=== PATIENT | male | born 1955 ===

== ENCOUNTER 2018-06-29 12:44 | Emergency (ER) | payer SELFPAY ==
[2018-06-29 12:50] VITALS: BP 145/87; PULSE 80; TEMP 37.1; O2SAT 99
--- NOTE | 2018-06-29 13:49 | ED.FALL ---
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 He states this had been quite sore, took ibuprofen for it and was getting along, but does not think it was helping the pain very much. He states that last night he was drinking and thinks that he slept on it awkwardly because it has been more painful since he woke up this morning. He denies any wheeze, cough, or fever. He states that it is hard to breathe at times due to the pain, but not frankly short of breath. He denies any other injury. He states his tetanus vaccine is up-to-date in the last 5 years as he has had frequent skin lacerations. He denies any other injury. He denies any new swelling or pain in his legs or other complaints on systems review Related Data Previous Rx's Medication Instructions Recorded hydrocodone-acetaminophen [[place]] 2 tab PO Q6H #14 tab 06/29/18 lidocaine [Lidoderm] 1 patch TOP DAILY #15 each 06/29/18 meloxicam [Mobic] 7.5 mg PO DAILY #14 tab 06/29/18 Allergies Allergy/AdvReac Type Severity Reaction Status Date / Time No Known Drug Allergies Allergy Verified 06/29/18 12:55 Review of Systems <Melissa Lara PA-C - Last Filed: 06/29/18 19:22> Review of Systems All systems reviewed & are unremarkable except as noted in HPI and below Exam <Melissa Lara PA-C - Last Filed: 06/29/18 19:22> Narrative Exam Narrative: GENERAL APPEARANCE: Patient sitting comfortably, in no distress. NECK/THYROID: Neck supple LUNGS: Breath sounds are a little coarse in the right lower lobe without shane wheeze or crackles, otherwise clear to auscultation bilaterally, no cough on exam CHEST: Tender to palpation over the right anterior lateral 10th and 11th ribs from midclavicular line lateral HEART: Regular rate and rhythm without murmur, normal S1, S2, no S3 or S4. ABDOMEN: Soft, NT, ND, + BS x 4 quadrants EXTREMITIES: No cyanosis or edema. No calf tenderness NEUROLOGIC: Alert and oriented, normal speech, gait and coordination. DERMATOLOGIC: There are 2 small scabbed abrasions on the right inferior anterior ribs Initial Vital Signs Initial Vital Signs: Vital Signs Temperature 98.8 F 06/29/18 12:50 Pulse Rate 80 06/29/18 12:50 Blood Pressure 145/87 H 06/29/18 12:50 Pulse Oximetry 99 06/29/18 12:50 <Jazz Payne MD - Last Filed: 06/30/18 08:03> Initial Vital Signs Initial Vital Signs: Vital Signs Temperature 98.8 F 06/29/18 12:50 Pulse Rate 80 06/29/18 12:50 Blood Pressure 145/87 H 06/29/18 12:50 Pulse Oximetry 99 06/29/18 12:50 PFSH <Melissa Lara PA-C - Last Filed: 06/29/18 19:22> Comment: mod ETOH Course <Melissa Lara PA-C - Last Filed: 06/29/18 19:22> Orders Ordered: Discontinued Medications Hydrocodone Bitart/Acetaminophen ([place] 5/325) 1 tab PO NOW ONE Stop: 06/29/18 14:02 Last Admin: 06/29/18 14:11 Dose: 1 tab Ibuprofen (Advil) 400 mg PO NOW ONE Stop: 06/29/18 14:02 Last Admin: 06/29/18 14:12 Dose: 400 mg Lidocaine (Lidoderm) 2 each TOP NOW ONE Stop: 06/29/18 14:02 Last Admin: 06/29/18 14:42 Dose: 2 each Vital Signs - 8 hr 06/29/18 12:50 Temperature 98.8 F Pulse Rate 80 Blood Pressure 145/87 H Pulse Oximetry 99 <Jazz Payne MD - Last Filed: 06/30/18 08:03> Orders Ordered: Discontinued Medications Hydrocodone Bitart/Acetaminophen ([place] 5/325) 1 tab PO NOW ONE Stop: 06/29/18 14:02 Last Admin: 06/29/18 14:11 Dose: 1 tab Ibuprofen (Advil) 400 mg PO NOW ONE Stop: 06/29/18 14:02 Last Admin: 06/29/18 14:12 Dose: 400 mg Lidocaine (Lidoderm) 2 each TOP NOW ONE Stop: 06/29/18 14:02 Last Admin: 06/29/18 14:42 Dose: 2 each Vital Signs - 8 hr 06/29/18 12:50 Temperature 98.8 F Pulse Rate 80 Blood Pressure 145/87 H Pulse Oximetry 99 MDM - Fall <Melissa Lara PA-C - Last Filed: 06/29/18 19:22> Imaging Data ribs: Radiologist's impression: [address] [address] XRay Report Signed Patient: David Disla#: [id number] : 6Acct:[id number] Age/Sex: 63 / MDate of Service: 06/29/18 Loc: ED Accession Number: [id number] Procedure: XR ribs RT min 3V w CXR1V Ordering Provider: Melissa Lara P.A-C PROCEDURE: XR RIBS RT MIN 3V W CXR 1V INDICATIONS: R. lower rib contusions, pain TECHNIQUE: 2 views of the right ribs were acquired, along with a single view chest. COMPARISON: [facility], CHEST 1 VIEW, 12/26/2014, 2:12. FINDINGS: Surgical changes and devices: None. Bones and chest wall: No fractures or dislocations. No osteolytic bony lesions are seen, but there is a area of relative sclerosis involving the lateral aspect of the right ninth rib measuring approximately 1.5 cm in length.. Overlying soft tissues appear unremarkable. Lungs and pleura: No pleural effusions or pneumothorax. Lungs appear clear. Mediastinum: Mediastinal contours appear normal. Heart size is normal. IMPRESSION: Reduced inspiratory volume, no definite trauma found. A small region of increased radiodensity within the right lateral ninth rib over a 1.5 cm length may have been previously present on a lordotic positioning chest plain film from 12/26/14. This is the only available comparison at includes that area. This does not appear to represent acute trauma and might represent old trauma. Dictated by: Arturo Haskins M.D. on 06/29/2018 at 14:21 Approved by: Arturo Haskins M.D. on 06/29/2018 at 14:25 Discharge Plan Departure Patient Disposition: Home Clinical Impression: Contusion of rib on right side Discharge Date/Time: 06/29/18 16:13 Interventions: ED Discharge Assessment Last Done: 06/29/18 16:12 Instructions: How to Use an Incentive Spirometer, DI for Rib Contusion Activity Restrictions/Additional Instructions: Please take the prescription anti-inflammatory/pain pill meloxicam once daily. Add the hydrocodone/acetaminophen as needed, but remember it can make you sleepy and you should not drive while using this. I have also printed a prescription for pain patches for you like the 1 we put on here. If [employer] does not cover these, you can get similar ones [id number] (ask the pharmacist to help you find 4% lidocaine patches). You should avoid lifting, twisting etc until your pain is better. Gentle walking and routine activity is okay. Please be sure to do the ?pillow hugging? technique as we talked about and focus on taking deep breaths 4-5 times daily. Also use the incentive spirometer like the respiratory therapist showed you. You should return here if you have any acutely worsening symptoms, otherwise you should see your PCP for follow-up in a few days to assess your progress, determine whether you need any further treatment or referral, and refill your pain medicine if needed. Prescriptions: New hydrocodone-acetaminophen [[place]] 5-325 mg tablet 2 tab PO Q6H Qty: 14 RF: 0 meloxicam [Mobic] 7.5 mg tablet 7.5 mg PO DAILY Qty: 14 RF: 0 lidocaine [Lidoderm] 5 % adhesive patch,medicated 1 patch TOP DAILY Qty: 15 RF: 0
--- NOTE | 2018-06-29 14:03 | DI.RAD.S_ITS ---
PROCEDURE: XR RIBS RT MIN 3V W CXR 1V INDICATIONS: R. lower rib contusions, pain TECHNIQUE: 2 views of the right ribs were acquired, along with a single view chest. COMPARISON: [facility], , CHEST 1 VIEW, 12/26/2014, 2:12. FINDINGS: Surgical changes and devices: None. Bones and chest wall: No fractures or dislocations. No osteolytic bony lesions are seen, but there is a area of relative sclerosis involving the lateral aspect of the right ninth rib measuring approximately 1.5 cm in length.. Overlying soft tissues appear unremarkable. Lungs and pleura: No pleural effusions or pneumothorax. Lungs appear clear. Mediastinum: Mediastinal contours appear normal. Heart size is normal. IMPRESSION: Reduced inspiratory volume, no definite trauma found. A small region of increased radiodensity within the right lateral ninth rib over a 1.5 cm length may have been previously present on a lordotic positioning chest plain film from 12/26/14. This is the only available comparison at includes that area. This does not appear to represent acute trauma and might represent old trauma. Dictated by: Arturo Haskins M.D. on 06/29/2018 at 14:21 Approved by: Arturo Haskins M.D. on 06/29/2018 at 14:25
[2018-06-29] MEDS: HYDROCODONE/ACET 5/325 TABLET 1 TAB PO (14:11)
[2018-06-29] MEDS: IBUPROFEN 400 MG TABLET PO (14:12)
--- NOTE | 2018-06-29 14:24 | ED_ITS ---
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 He states this had been quite sore, took ibuprofen for it and was getting along, but does not think it was helping the pain very much. He states that last night he was drinking and thinks that he slept on it awkwardly because it has been more painful since he woke up this morning. He denies any wheeze, cough, or fever. He states that it is hard to breathe at times due to the pain, but not frankly short of breath. He denies any other injury. He states his tetanus vaccine is up-to-date in the last 5 years as he has had frequent skin lacerations. He denies any other injury. He denies any new swelling or pain in his legs or other complaints on systems review Related Data Previous Rx's Medication Instructions Recorded hydrocodone-acetaminophen [[place]] 2 tab PO Q6H #14 tab 06/29/18 lidocaine [Lidoderm] 1 patch TOP DAILY #15 each 06/29/18 meloxicam [Mobic] 7.5 mg PO DAILY #14 tab 06/29/18 Allergies Allergy/AdvReac Type Severity Reaction Status Date / Time No Known Drug Allergies Allergy Verified 06/29/18 12:55 Review of Systems <Melissa Lara PA-C - Last Filed: 06/29/18 19:22> Review of Systems All systems reviewed & are unremarkable except as noted in HPI and below Exam <Melissa Lara PA-C - Last Filed: 06/29/18 19:22> Narrative Exam Narrative: GENERAL APPEARANCE: Patient sitting comfortably, in no distress. NECK/THYROID: Neck supple LUNGS: Breath sounds are a little coarse in the right lower lobe without shane wheeze or crackles, otherwise clear to auscultation bilaterally, no cough on exam CHEST: Tender to palpation over the right anterior lateral 10th and 11th ribs from midclavicular line lateral HEART: Regular rate and rhythm without murmur, normal S1, S2, no S3 or S4. ABDOMEN: Soft, NT, ND, + BS x 4 quadrants EXTREMITIES: No cyanosis or edema. No calf tenderness NEUROLOGIC: Alert and oriented, normal speech, gait and coordination. DERMATOLOGIC: There are 2 small scabbed abrasions on the right inferior anterior ribs Initial Vital Signs Initial Vital Signs: Vital Signs Temperature 98.8 F 06/29/18 12:50 Pulse Rate 80 06/29/18 12:50 Blood Pressure 145/87 H 06/29/18 12:50 Pulse Oximetry 99 06/29/18 12:50 <Jazz Payne MD - Last Filed: 06/30/18 08:03> Initial Vital Signs Initial Vital Signs: Vital Signs Temperature 98.8 F 06/29/18 12:50 Pulse Rate 80 06/29/18 12:50 Blood Pressure 145/87 H 06/29/18 12:50 Pulse Oximetry 99 06/29/18 12:50 PFSH <Melissa Lara PA-C - Last Filed: 06/29/18 19:22> Comment: mod ETOH Course <Melissa Lara PA-C - Last Filed: 06/29/18 19:22> Orders Ordered: Discontinued Medications Hydrocodone Bitart/Acetaminophen ([place] 5/325) 1 tab PO NOW ONE Stop: 06/29/18 14:02 Last Admin: 06/29/18 14:11 Dose: 1 tab Ibuprofen (Advil) 400 mg PO NOW ONE Stop: 06/29/18 14:02 Last Admin: 06/29/18 14:12 Dose: 400 mg Lidocaine (Lidoderm) 2 each TOP NOW ONE Stop: 06/29/18 14:02 Last Admin: 06/29/18 14:42 Dose: 2 each Vital Signs - 8 hr 06/29/18 12:50 Temperature 98.8 F Pulse Rate 80 Blood Pressure 145/87 H Pulse Oximetry 99 <Jazz Payne MD - Last Filed: 06/30/18 08:03> Orders Ordered: Discontinued Medications Hydrocodone Bitart/Acetaminophen ([place] 5/325) 1 tab PO NOW ONE Stop: 06/29/18 14:02 Last Admin: 06/29/18 14:11 Dose: 1 tab Ibuprofen (Advil) 400 mg PO NOW ONE Stop: 06/29/18 14:02 Last Admin: 06/29/18 14:12 Dose: 400 mg Lidocaine (Lidoderm) 2 each TOP NOW ONE Stop: 06/29/18 14:02 Last Admin: 06/29/18 14:42 Dose: 2 each Vital Signs - 8 hr 06/29/18 12:50 Temperature 98.8 F Pulse Rate 80 Blood Pressure 145/87 H Pulse Oximetry 99 MDM - Fall <Melissa Lraa PA-C - Last Filed: 06/29/18 19:22> Imaging Data ribs: Radiologist's impression: [address] [address] XRay Report Signed Patient: David Disla#: [id number] : 6Acct:[id number] Age/Sex: 63 / MDate of Service: 06/29/18 Loc: ED Accession Number: [id number] Procedure: XR ribs RT min 3V w CXR1V Ordering Provider: Melissa Lara P.A-C PROCEDURE: XR RIBS RT MIN 3V W CXR 1V INDICATIONS: R. lower rib contusions, pain TECHNIQUE: 2 views of the right ribs were acquired, along with a single view chest. COMPARISON: [facility], CHEST 1 VIEW, 12/26/2014, 2:12. FINDINGS: Surgical changes and devices: None. Bones and chest wall: No fractures or dislocations. No osteolytic bony lesions are seen, but there is a area of relative sclerosis involving the lateral aspect of the right ninth rib measuring approximately 1.5 cm in length.. Overlying soft tissues appear unremarkable. Lungs and pleura: No pleural effusions or pneumothorax. Lungs appear clear. Mediastinum: Mediastinal contours appear normal. Heart size is normal. IMPRESSION: Reduced inspiratory volume, no definite trauma found. A small region of increased radiodensity within the right lateral ninth rib over a 1.5 cm length may have been previously present on a lordotic positioning chest plain film from . This is the only available comparison at includes that area. This does not appear to represent acute trauma and might represent old trauma. Dictated by: Arturo Haskins M.D. on 06/29/2018 at 14:21 Approved by: Arturo Haskins M.D. on 06/29/2018 at 14:25 Discharge Plan Departure Patient Disposition: Home Clinical Impression: Contusion of rib on right side Discharge Date/Time: 06/29/18 16:13 Interventions: ED Discharge Assessment Last Done: 06/29/18 16:12 Instructions: How to Use an Incentive Spirometer, DI for Rib Contusion Activity Restrictions/Additional Instructions: Please take the prescription anti-inflammatory/pain pill meloxicam once daily. Add the hydrocodone/acetaminophen as needed, but remember it can make you sleepy and you should not drive while using this. I have also printed a prescription for pain patches for you like the 1 we put on here. If [employer] does not cover these, you can get similar ones [id number] (ask the pharmacist to help you find 4% lidocaine patches). You should avoid lifting, twisting etc until your pain is better. Gentle walking and routine activity is okay. Please be sure to do the ?pillow hugging ? technique as we talked about and focus on taking deep breaths 4-5 times daily. Also use the incentive spirometer like the respiratory therapist showed you. You should return here if you have any acutely worsening symptoms, otherwise you should see your PCP for follow-up in a few days to assess your progress, determine whether you need any further treatment or referral, and refill your pain medicine if needed. Prescriptions: New hydrocodone-acetaminophen [[place]] 5-325 mg tablet 2 tab PO Q6H Qty: 14 RF: 0 meloxicam [Mobic] 7.5 mg tablet 7.5 mg PO DAILY Qty: 14 RF: 0 lidocaine [Lidoderm] 5 % adhesive patch,medicated 1 patch TOP DAILY Qty: 15 RF: 0
[2018-06-29] MEDS: LIDOCAINE PATCH 1 EACH ADH..PATCH 2 EACH TOP (14:42)
== END 2018-06-29 16:13 | disposition home or self-care (01) ==
PROVIDERS: Emergency Provider Internal Medicine
DX: S20.211A Contusion of right front wall of thorax, initial encounter (principal); W01.0XXA Fall on same level from slipping, tripping and stumbling without subsequent striking against object, initial encounter; Y99.0 Civilian activity done for income or pay
CPT/HCPCS: 71101; 99282; 99283

== ENCOUNTER → 2018-09-17 17:45 | Outpatient (CLI) | payer OTHER, SELFPAY | PROVIDERS: Visit Provider Physician Assistant | DX: K13.0 Diseases of lips (principal) | CPT/HCPCS: 87070; 87075; 87205 ==

== ENCOUNTER 2018-12-02 19:15 | Emergency (ER) | payer OTHER, SELFPAY ==
[2018-12-02 19:23] VITALS: BP 145/93; PULSE 78; RESP 16; TEMP 36.2; O2SAT 99
--- NOTE | 2018-12-02 19:57 | ED.ABDPAIN ---
HPI - Abdominal Pain General Chief Complaint: Abdominal Pain Stated Complaint: ABD PAIN Time Seen by Provider: 12/02/18 19:20 Source: patient Mode of arrival: ambulatory Limitations: no limitations History of Present Illness HPI narrative: 63-year-old nonsmoker with history of hypertension presents with a chief complaint of some lower abdominal cramping and a few episodes of loose stools over the afternoon. He states that he thinks there might have been a small amount of blood in the most recent. He denies fever or chills. He is not dizzy nor weak or lightheaded. He states he is sure her it is related to a bad turkey sandwich he earlier today. He denies recent travel or exposure to ill persons Onset (ago): hour(s) Pain Consistency: intermittent Location: suprapubic Severity: mild Quality: cramping Relieving factors: bowel movement Exacerbating factors: nothing Associated symptoms: denies other symptoms Related Data Home Medications Medication Instructions Recorded Confirmed amlodipine 10 mg tablet 10 mg PO DAILY 08/26/18 09/17/18 pravastatin 20 mg tablet 20 mg PO DAILY 08/26/18 09/17/18 Previous Rx's Medication Instructions Recorded amlodipine 10 mg tablet 10 mg PO DAILY #90 tab 08/26/18 pravastatin 20 mg tablet 20 mg PO DAILY #90 tab 08/26/18 Allergies Allergy/AdvReac Type Severity Reaction Status Date / Time No Known Drug Allergies Allergy Verified 09/17/18 16:59 Review of Systems Constitutional Denies chills, Denies fever(s), Denies lethargy and Denies weakness Eyes Denies change in vision, Denies eye discharge, Denies irritation and Denies loss of vision ENT Ears, Nose, Mouth, and Throat: Denies change in voice, Denies neck pain and Denies sore throat Cardiovascular Denies chest pain, Denies irregular heart rhythm, Denies lightheadedness, Denies palpitations, Denies dyspnea, Denies dyspnea on exertion and Denies orthopnea Respiratory Denies cough, Denies dyspnea, Denies dyspnea on exertion and Denies wheezing Gastrointestinal Gastrointestinal: Reports abdominal pain, Denies change in bowel habits, Reports diarrhea, Denies nausea and Denies vomiting Genitourinary Denies hematuria, Denies flank pain, Denies urinary incontinence and Denies urinary urgency Musculoskeletal Denies neck pain Integumentary/Breasts Denies pruritus, Denies erythema, Denies rash and Denies wounds Neurologic Denies confusion, Denies loss of vision and Denies weakness Psychiatric Denies anxiety, Denies confusion, Denies depression, Denies homicidal ideation and Denies suicidal ideation Endocrine Denies palpitations Hematologic/Lymphatic Denies easy bruising Allergic/Immunologic Denies wheezing [facility] Medical History GERD (gastroesophageal reflux disease) (Chronic) HTN (hypertension) (Chronic) Hyperlipidemia (Chronic) Surgical History S/P ORIF (open reduction internal fixation) fracture (Resolved) Social History Smoking Status: Former smoker Social History Smoking Status: Former smoker Exam Narrative Exam Narrative: GENERAL: 63-year-old male appears younger than stated age This is a well-nourished, well-developed patient, in mild distress. HEAD: Atraumatic. Normocephalic. No temporal or scalp tenderness. EYES: Pupils equal round and reactive. Extraocular motions intact. No scleral icterus. No injection or drainage. ENT: Nose without bleeding, purulent drainage or septal hematoma. Throat without erythema, tonsillar hypertrophy or exudate. Uvula midline. Airway patent. NECK: Trachea midline. No JVD or lymphadenopathy. Supple, nontender, no meningeal signs. CARDIOVASCULAR: Regular rate and rhythm without murmurs, gallops, or rubs. RESPIRATORY: Clear to auscultation. Breath sounds equal bilaterally. No wheezes, rales, or rhonchi. GASTROINTESTINAL: Abdomen soft, mild suprapubic tenderness, nondistended. increased bowel sounds No hepato-splenomegaly, or palpable masses. No guarding. EXTREMITIES: No clubbing, cyanosis, or edema. No joint tenderness, effusion, or edema noted. BACK: Nontender without deformity or crepitance. No flank tenderness. NEURO: AOx3. SKIN: No rash or erythema. Initial Vital Signs Initial Vital Signs: Vital Signs Temperature 97.2 F L 12/02/18 19:23 Pulse Rate 78 12/02/18 19:23 Respiratory Rate 16 12/02/18 19:23 Blood Pressure 145/93 H 12/02/18 19:23 Pulse Oximetry 99 12/02/18 19:23 Course Course Narrative: Patient felt tremendous improvement with hyoscyamine but was unwilling to wait for a discharge and prescription. Orders Ordered: ED Orders 12/02/18 19:55 GI Panel (Film Array) Stat Discontinued Medications Hyoscyamine (Levsin) 0.125 mg PO NOW ONE Stop: 12/02/18 20:55 Last Admin: 12/02/18 20:57 Dose: 0.125 mg Vital Signs - 8 hr 12/02/18 19:23 Temperature 97.2 F L Pulse Rate 78 Respiratory Rate 16 Blood Pressure 145/93 H Pulse Oximetry 99 MDM - Abdominal Pain Lab Data Lab Results 12/02/18 Range/Units 19:55 Stl C. cayetanensis PCR Not detected (Not Detect) Stool Rotavirus (PCR) Not detected (Not Detect) Stool Adenovirus (PCR) Not detected (Not Detect) Stool Astrovirus (PCR) Not detected (Not Detect) Stool Cryptosporidium PCR Not detected (Not Detect) Stl E.coli Shiga Tox PCR Not detected (Not Detect) St Sh/Enteroin Ecoli PCR Not detected (Not Detect) Stool E coli O157 PCR Not Reportable Stl Enterotoxigenic E PCR Not detected (Not Detect) Stool EPEC (PCR) Not detected (Not Detect) Stl E. histolytica PCR Not detected (Not Detect) Stool Giardia Lamblia PCR Not detected (Not Detect) Stool Sapovirus (PCR) Not detected (Not Detect) Stl P. shigelloides PCR Not detected (Not Detect) St Y.enterocolitica PCR Not detected (Not Detect) Stool Vibrio (PCR) Not detected (Not Detect) Stl Vibrio cholerae PCR Not detected (Not Detect) Stl Enteroaggr Ecoli PCR Not detected (Not Detect) Stl Norovirus GI/GII PCR Not detected (Not Detect) Campylobacter (PCR) Not detected (Not Detect) C. difficile Tox (PCR) Not detected (Not Detect) Salmonella (PCR) Not detected (Not Detect) Discharge Plan Departure Patient Disposition: Left Against Medical Advice Clinical Impression: Left against medical advice Discharge Date/Time: 12/02/18 22:19 Interventions: ED Discharge Assessment Last Done: 12/02/18 22:18 Prescriptions: No Action amlodipine 10 mg tablet 10 mg PO DAILY RF: 0 pravastatin 20 mg tablet 20 mg PO DAILY RF: 0 amlodipine 10 mg tablet 10 mg PO DAILY Qty: 90 RF: 0 pravastatin 20 mg tablet 20 mg PO DAILY Qty: 90 RF: 0 Stand Alone Forms: Against Medical Advice
[2018-12-02] MEDS: HYOSCYAMINE 0.125 MG TABLET PO (20:57)
[2018-12-02 21:37] LABS: Adenovirus F 40/41 Not Detected (Not Detect); Astrovirus Not Detected (Not Detect); Campylobacter Not Detected (Not Detect); Clostridium difficile toxin AB Not Detected (Not Detect); Cryptosporidium Not Detected (Not Detect); Cyclospora cayetanensis Not Detected (Not Detect); Entamoeba histolytica Not Detected (Not Detect); Enteroaggregative E.coli Not Detected (Not Detect); Enteropathogenic E.coli Not Detected (Not Detect); Enterotoxigenic E.coli It/st Not Detected (Not Detect); Giardia lamblia Not Detected (Not Detect); Norovirus GI/GII Not Detected (Not Detect); Plesiomonsa shigelloides Not Detected (Not Detect); Rotavirus A Not Detected (Not Detect); Salmonella Not Detected (Not Detect); Sapovirus Not Detected (Not Detect); Shiga-like toxin-prod E.coli Not Detected (Not Detect); Shigella/Enteroinvasive E.coli Not Detected (Not Detect); Vibrio Not Detected (Not Detect); Vibrio cholerae Not Detected (Not Detect); Yersinia enterocolitica Not Detected (Not Detect)
== END 2018-12-02 22:19 | disposition left against medical advice (07) ==
PROVIDERS: Emergency Provider Emergency Medicine
DX: R10.30 Lower abdominal pain, unspecified (principal); Z53.20 Procedure and treatment not carried out because of patient's decision for unspecified reasons
CPT/HCPCS: 87507; 99282; 99283

== ENCOUNTER 2019-07-26 15:01 | Emergency (ER) | payer OTHER, SELFPAY ==
[2019-07-26 15:05] VITALS: BP 153/100; PULSE 88; RESP 16; TEMP 36.6; O2SAT 98
--- NOTE | 2019-07-26 16:38 | PC.NURSE ---
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
--- NOTE | 2019-07-26 18:55 | ED_ITS ---
HPI - Extremity Injury (Upper) <HERSON Lacey-BC - Last Filed: 07/26/19 18:59> General Chief Complaint: Extremity Injury, Upper Stated Complaint: discoloration on rt arm Time Seen by Provider: 07/26/19 16:40 Source: patient Mode of arrival: Ambulatory Limitations: no limitations History of Present Illness HPI narrative: The patient is a 64-year-old male former smoker with history of h ypertension and hyperlipidemia who presents with a chief complaint of a cecelia on his left elbow. He states he knows it this morning. 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 He is also concerned about infection. He states that due to increased stress at work, he is drinking a lot of alcohol every day. He does not specify how much, just states ?too much.He states he is often getting blackout drunk and is concerned that he might have hurt or burn himself all intoxicated. He denies any fevers chest pain shortness of breath nausea vomiting diarrhea or abdominal pain. He states that he has a full range of motion of his left elbow. Denies any left wrist hand or shoulder pain. He denies any left elbow pain. Related Data Home Medications Medication Instructions Recorded Confirmed amlodipine 10 mg tablet 10 mg PO DAILY 08/26/18 09/17/18 pravastatin 20 mg tablet 20 mg PO DAILY 08/26/18 09/17/18 Previous Rx's Medication Instructions Recorded amlodipine 10 mg tablet 10 mg PO DAILY #90 tab 08/26/18 pravastatin 20 mg tablet 20 mg PO DAILY #90 tab 08/26/18 Allergies Allergy/AdvReac Type Severity Reaction Status Date / Time No Known Drug Allergies Allergy Verified 09/17/18 16:59 Review of Systems <DOE Lacey - Last Filed: 07/26/19 18:59> Review of Systems Narrative: GENERAL: Denies chills, fatigue, malaise, fever, sweats. HEENT: Denies sinus pain, ear pain, sore throat, difficulty swallowing, dizziness. RESPIRATORY: Denies dyspnea, cough, wheezing, hemoptysis, sputum. CARDIOVASCULAR: Denies chest pain, palpitations, orthopnea, edema, GASTROINTESTINAL: Denies nausea, vomiting, abdominal pain, diarrhea, constipation, melena. : Denies dysuria, frequency, incontinence, hematuria, urinary retention. MUSCULOSKELETAL: See HPI SKIN: See HPI NEUROLOGIC: Denies weakness, headache, numbness, change in speech, confusion, seizures, incoordination. PSYCHIATRIC: No concerning psychosocial issues. 12 point review of systems is negative except for those stated above Patient History <DOE Lacey - Last Filed: 07/26/19 18:59> Medical History GERD (gastroesophageal reflux disease) (Chronic) HTN (hypertension) (Chronic) Hyperlipidemia (Chronic) Surgical History S/P ORIF (open reduction internal fixation) fracture (Resolved) Social History Smoking Status: Former smoker Smoking Status: Former smoker alcohol intake frequency: 3 or more drinks per day Substance Use Type: does not use Exam <DOE Lacey - Last Filed: 07/26/19 18:59> Narrative Exam Narrative: GENERAL: This is a well-nourished, well-developed patient, in no acute distress HEAD: Atraumatic. Normocephalic. No temporal or scalp tenderness. EYES: Pupils equal round and reactive. Extraocular motions intact. No scleral icterus. No injection or drainage. ENT: Nose without bleeding, purulent drainage or septal hematoma. Throat without erythema, tonsillar hypertrophy or exudate. Uvula midline. Airway patent. NECK: Trachea midline. No JVD or lymphadenopathy. Supple, nontender, no meningeal signs. CARDIOVASCULAR: Regular rate and rhythm RESPIRATORY: No cough. No increased respiratory effort. No accessory muscle use. EXTREMITIES: Full range of motion noted left arm and elbow. Able to flex and extend, pronate supinate. Positive radial pulse left hand. Strength is equal upper and lower extremities bilaterally. BACK: Nontender without deformity or crepitance. No flank tenderness. NEURO: AOx3. SKIN: Large area of ecchymosis noted on posterior left elbow. No laceration or abrasion. No palpable warmth. No erythema. No drainage. Skin is intact. Initial Vital Signs Initial Vital Signs: Vital Signs Temperature 97.9 F 07/26/19 15:05 Pulse Rate 88 07/26/19 15:05 Respiratory Rate 16 07/26/19 15:05 Blood Pressure 153/100 H 07/26/19 15:05 Pulse Oximetry 98 07/26/19 15:05 <Lauren Seay MD - Last Filed: 07/27/19 07:22> Initial Vital Signs Initial Vital Signs: Vital Signs Temperature 97.9 F 07/26/19 15:05 Pulse Rate 88 07/26/19 15:05 Respiratory Rate 16 07/26/19 15:05 Blood Pressure 153/100 H 07/26/19 15:05 Pulse Oximetry 98 07/26/19 15:05 Course <DOE Lacey - Last Filed: 07/26/19 18:59> Vital Signs Vital signs: Vital Signs - 8 hr 07/26/19 15:05 Temperature 97.9 F Pulse Rate 88 Respiratory Rate 16 Blood Pressure 153/100 H Pulse Oximetry 98 <Lauren Seay MD - Last Filed: 07/27/19 07:22> Vital Signs Vital signs: Vital Signs - 8 hr 07/26/19 15:05 Temperature 97.9 F Pulse Rate 88 Respiratory Rate 16 Blood Pressure 153/100 H Pulse Oximetry 98 MDM - Extremity Injury (Upper) <DOE Lacey - Last Filed: 07/26/19 18:59> MDM Narrative Medical decision making narrative: The patient is a 64-year-old male who presents with a chief complaint of a cecelia on his left arm. He is not consistent with a burn. He is concerned about flexion, but there's no erythema or warmth. On exam he has a large area of ecchymosis. It is possible he hurt himself while intoxicated. I strongly encouraged him to drink last alcohol. He has no pain to palpation of his arm, full range of motion of his left elbow. Thus I do not believe that he needs an x-ray at this point time. I encouraged rest ice compression elevation as well as [id number] pain medications as needed and able. Patient has no questions or concerns upon discharge and states unde rstanding of return precautions as well as follow-up care. I gave him contact information to the [facility] health human resources team member. Discharge Plan Departure Patient Disposition: Home Clinical Impression: Contusion Qualifiers: Encounter type: initial encounter Contusion area: elbow Laterality: left Qualified Code(s): S50.02XA - Contusion of left elbow, initial encounter Discharge Date/Time: 07/26/19 17:14 Instructions: DI for Alcohol Abuse, DI for Contusion, How To Perform RICE (Rest, Ice, Compress, Elevate) Activity Restrictions/Additional Instructions: Thank you for trusting us with your care today Your exam does not indicate a burn. Rather it indicates bruising. Please use ice as well as [id number] medications as needed and able Please follow-up with primary care provider. I've given contact information to the [facility] health human resources team member. They cannot match with PCP. I strongly suggest that you stop drinking as much alcohol. I have included information regarding alcohol cessation. It is possible that you injured herself while you were intoxicated Prescriptions: No Action amlodipine 10 mg tablet 10 mg PO DAILY RF: 0 pravastatin 20 mg tablet 20 mg PO DAILY RF: 0 amlodipine 10 mg tablet 10 mg PO DAILY Qty: 90 RF: 0 pravastatin 20 mg tablet 20 mg PO DAILY Qty: 90 RF: 0 Referrals: [facility] [Outside]
== END 2019-07-26 17:14 | disposition home or self-care (01) ==
PROVIDERS: Emergency Provider Nurse Practitioner Family
DX: S50.02XA Contusion of left elbow, initial encounter (principal)
CPT/HCPCS: 99281

== ENCOUNTER 2020-09-11 13:04 | Emergency (ER) | payer SELFPAY ==
[2020-09-11 13:19] VITALS: BP 132/93; PULSE 80; RESP 16; TEMP 37.1; O2SAT 98; BMI 27.4
--- NOTE | 2020-09-11 13:20 | DI.RAD.S_ITS ---
PROCEDURE: XR SHOULDER LT MIN 2V INDICATIONS: pain fall TECHNIQUE: 3 views of the shoulder were acquired. COMPARISON: None. FINDINGS: Bones: Healed midshaft clavicular fracture. No acute fractures or dislocations. No suspicious bony lesions. Visualized ribs appear intact. Soft tissues: No suspicious soft tissue calcifications. IMPRESSION: No acute fracture. No osseous lesion. If symptoms and/or clinical suspicion for pathology persist, further assessment with repeat, or advanced imaging (e.g., CT, MRI, or bone scan) may be helpful for further assessment. Dictated by: Rishi Christensen M.D. on 09/11/2020 at 13:27 Approved by: Rishi Christensen M.D. on 09/11/2020 at 13:28
--- NOTE | 2020-09-11 13:24 | ED.UPPEXIN ---
HPI - Extremity Injury (Upper) General Chief Complaint: Extremity Injury, Upper Stated Complaint: fell and hit lt am. unable to raise Time Seen by Provider: 09/11/20 13:06 Source: patient Mode of arrival: Ambulatory Limitations: no limitations History of Present Illness HPI narrative: Male history of hyperlipidemia hypertension presenting after a ground level fall last night. He said he got up in the middle night to go to the kitchen when he slipped and fell landing on his left shoulder. He says it has been hurting. He denies any back pain or head injury no loss of consciousness. He is not on any anti-platelet or anticoagulation medication. He denies numbness tingling or weakness in his hand or arm. complaint: injury to: left and shoulder Onset (ago): hour(s) Related Data Home Medications Medication Instructions Recorded Confirmed amlodipine 10 mg tablet 10 mg PO DAILY 08/26/18 09/17/18 pravastatin 20 mg tablet 20 mg PO DAILY 08/26/18 09/17/18 Previous Rx's Medication Instructions Recorded amlodipine 10 mg tablet 10 mg PO DAILY #90 tab 08/26/18 pravastatin 20 mg tablet 20 mg PO DAILY #90 tab 08/26/18 Allergies Allergy/AdvReac Type Severity Reaction Status Date / Time No Known Drug Allergies Allergy Verified 09/17/18 16:59 Review of Systems Review of Systems Narrative: GENERAL: Denies chills,fever HEENT: Denies throat pain RESPIRATORY: Denies dyspnea, cough, wheezing CARDIOVASCULAR: Denies chest pain, palpitations GASTROINTESTINAL: Denies nausea, vomiting MUSCULOSKELETAL: See HPI SKIN: No rash, no laceration, no pruritus NEUROLOGIC: Denies weakness, dizziness, headache, numbness 8 point review of systems is negative except for those stated above and HPI Patient History Medical History (Updated 09/11/20 @ 14:01 by Vandana Razo DO) GERD (gastroesophageal reflux disease) HTN (hypertension) Hyperlipidemia Surgical History S/P ORIF (open reduction internal fixation) fracture Social History Smoking Status: Former smoker Smoking Status: Former smoker alcohol intake frequency: 3 or more drinks per day Substance Use Type: does not use Exam Initial Vital Signs Initial Vital Signs: Vital Signs Temperature 98.7 F 09/11/20 13:19 Pulse Rate 80 09/11/20 13:19 Respiratory Rate 16 09/11/20 13:19 Blood Pressure 132/93 H 09/11/20 13:19 Pulse Oximetry 98 09/11/20 13:19 GENERAL: Well-appearing, well-nourished and in no acute distress. CARDIOVASCULAR: peripheral pulses in tact, cap refill <2 sec RESPIRATORY: No respiratory distress, speaks in full sentences without difficulty EXTREMITIES: Normal range of motion, no clubbing or edema. Neurovascularly intact Left shoulder: He does have step-off on his clavicle but he says that is from previous injury tender on humeral head sensation intact over deltoid no elbow pain pronation supination intact no wrist deformity distal radial pulse intact NEUROLOGICAL: Cranial nerves II through XII grossly intact. Normal gait and speech. SKIN: Warm, dry, no petechiae, no rashes or lesions. Course Orders Ordered: ED Orders 09/11/20 13:20 XR shoulder LT min 2V Stat Vital Signs Vital signs: Vital Signs - 8 hr 09/11/20 13:19 Temperature 98.7 F Pulse Rate 80 Respiratory Rate 16 Blood Pressure 132/93 H Pulse Oximetry 98 MDM - Extremity Injury (Upper) Imaging Data Extremity x-ray #1: Radiologist's Impression: PROCEDURE: XR SHOULDER LT MIN 2V INDICATIONS: pain fall TECHNIQUE: 3 views of the shoulder were acquired. COMPARISON: None. FINDINGS: Bones: Healed midshaft clavicular fracture. No acute fractures or dislocations. No suspicious bony lesions. Visualized ribs appear intact. Soft tissues: No suspicious soft tissue calcifications. IMPRESSION: No acute fracture. No osseous lesion. If symptoms and/or clinical suspicion for pathology persist, further assessment with repeat, or advanced imaging (e.g., CT, MRI, or bone scan) may be helpful for further assessment. Dictated by: Rishi Christensen M.D. on 09/11/2020 at 13:27 Approved by: Rishi Christensen M.D. on 09/11/2020 at 13:28 Discharge Plan Departure Patient Disposition: Home Clinical Impression: Sprain of left shoulder Qualifiers: Encounter type: initial encounter Shoulder sprain type: unspecified sprain Qualified Code(s): S43.402A - Unspecified sprain of left shoulder joint, initial encounter Instructions: DI for Shoulder Sprain Activity Restrictions/Additional Instructions: *You have been diagnosed with left shoulder sprain *What to do: Increase activity as tolerated. *Continue to take medications as directed Ibuprofen 600 mg every 6-8 hours if needed for pain *Follow up with your primary care provider in 2-3 days *Return to ER if you should have increasing pain, weakness, numbness, tingling or any new, worsening or concerning symptoms Prescriptions: No Action amlodipine 10 mg tablet 10 mg PO DAILY RF: 0 pravastatin 20 mg tablet 20 mg PO DAILY RF: 0 amlodipine 10 mg tablet 10 mg PO DAILY Qty: 90 RF: 0 pravastatin 20 mg tablet 20 mg PO DAILY Qty: 90 RF: 0
[2020-09-11 14:10] VITALS: BP 137/91; PULSE 76; RESP 16; O2SAT 96
== END 2020-09-11 14:12 | disposition home or self-care (01) ==
PROVIDERS: Emergency Provider Emergency Medicine
DX: S43.402A Unspecified sprain of left shoulder joint, initial encounter (principal); W19.XXXA Unspecified fall, initial encounter; I10 Essential (primary) hypertension; E78.5 Hyperlipidemia, unspecified
CPT/HCPCS: 73030; 99283

== ENCOUNTER → 2022-01-02 09:55 | Outpatient (CLI) | payer OTHER, SELFPAY ==
[2022-01-02 10:19] LABS: Add Manual Diff / Slide Review NO; Basophils Absolute Auto 0 /uL (0-100); Basophils Percent Auto 0.8 % (0-2); Eosinophils Absolute Auto 200 /uL (0-450); Eosinophils Percent Auto 3.6 % (2-4); Hematocrit 46.2 % (41-53); Lymphocytes Absolute Auto 1500 /uL (1100-4500); Lymphocytes Percent Auto 27.2 % (25-40); Mean Corpuscular HGB Conc 34.7 % (30-36); Mean Corpuscular Hemoglobin 31.3 PG (26-34); Mean Corpuscular Volume 90.1 fL (80-100); Monocytes Absolute Auto 700 /uL (0-900); Monocytes Percent Auto 12.4 % (3-14); Neutrophils Absolute Auto 3000 /uL (1500-7000); Platelet Count 289 X10^3/uL (150-400); Red Blood Cell Count 5.13 X10^6/uL (4.5-5.9); Red Cell Distribution Width 13.6 % (11.6-14.8); White Blood Cell Count 5.3 X10^3/uL (4.5-11.0)
[2022-01-02 10:35] LABS: Alanine Aminotransferase 21 IU/L (<50); Albumin 4.2 g/dL (3.5-5.0); Albumin Globulin Ratio 1.3 (1.0-2.8); Alkaline Phosphatase 67 U/L (38-126); Aspartate Aminotransferase 37 IU/L (17-59); BUN Creatinine Ratio 15.7 (6-22); Bilirubin Total 0.6 mg/dL (0.2-1.3); Blood Urea Nitrogen 13 mg/dL (9-20); Calcium 8.8 mg/dL (8.4-10.2); Carbon Dioxide 29 mmol/L (22-32); Chloride 102 mmol/L (98-107); Cholesterol 179 mg/dL (140-199); Estimated Glomerular Filt Rate > 60 mL/min (>60); Globulin 3.2 g/dL (1.7-4.1); Glucose 113 mg/dL (80-110); HDL Cholesterol 36 mg/dL (40-60); HEMOLYSIS 15 (0-50); LDL Cholesterol Calculated 124 mg/dL (<100); Potassium 4.2 mmol/L (3.4-5.1); Sodium 138 mmol/L (137-145); Total Protein 7.4 g/dL (6.3-8.2); Triglycerides 96 mg/dL (35-150)
[2022-01-02 10:45] LABS: D Dimer < 200 ng/mL (<230); Troponin I < 0.012 ng/mL (0.01-0.034)
[2022-01-02 11:04] LABS: Prostate Specific Antigen 1.28 ng/mL (0.10-4.00)
== END ==
LOC: LAB 09:57
PROVIDERS: Referring Provider Physician Assistant; Visit Provider Physician Assistant
DX: R07.9 Chest pain, unspecified (principal); Z12.5 Encounter for screening for malignant neoplasm of prostate
CPT/HCPCS: 36415; 80053; 80061; 84153; 84484; 85025; 85379; G0103

== ENCOUNTER 2022-08-23 18:07 | Emergency (ER) | payer OTHER, SELFPAY ==
[2022-08-23] VITALS (7 sets, daily range): BP systolic 119–132; BP diastolic 70–89; PULSE 56–78; RESP 18; TEMP 36.6; O2SAT 94–98; BMI 28.3
[2022-08-23 18:46] LABS: Add Manual Diff / Slide Review NO; Basophils Absolute Auto 0 /uL (0-100); Basophils Percent Auto 0.5 % (0-2); Eosinophils Absolute Auto 200 /uL (0-450); Eosinophils Percent Auto 1.9 % (2-4); Hematocrit 45.2 % (41-53); Hemoglobin 15.3 g/dL (13.5-17.5); Lymphocytes Absolute Auto 1700 /uL (1100-4500); Lymphocytes Percent Auto 18.9 % (25-40); Mean Corpuscular Hemoglobin 30.9 PG (26-34); Mean Corpuscular Volume 91.1 fL (80-100); Monocytes Absolute Auto 1000 /uL (0-900); Monocytes Percent Auto 11.6 % (3-14); Neutrophils Absolute Auto 5900 /uL (1500-7000); Neutrophils Percent Auto 67.1 % (50-75); Platelet Count 232 X10^3/uL (150-400); Red Blood Cell Count 4.96 X10^6/uL (4.5-5.9); Red Cell Distribution Width 13.6 % (11.6-14.8); White Blood Cell Count 8.8 X10^3/uL (4.5-11.0)
[2022-08-23 18:55] LABS: Alanine Aminotransferase 26 IU/L (<50); Albumin 4.3 g/dL (3.5-5.0); Albumin Globulin Ratio 1.4 (1.0-2.8); Alkaline Phosphatase 60 U/L (38-126); Aspartate Aminotransferase 33 IU/L (17-59); BUN Creatinine Ratio 29.6 (6-22); Bilirubin Total 0.7 mg/dL (0.2-1.3); Blood Urea Nitrogen 24 mg/dL (9-20); Calcium 8.7 mg/dL (8.4-10.2); Carbon Dioxide 20 mmol/L (22-32); Chloride 104 mmol/L (98-107); Estimated Glomerular Filt Rate > 60 mL/min (>60); Glucose 104 mg/dL (80-110); HEMOLYSIS < 15 (0-50); Lipase 105 U/L (23-300); Sodium 137 mmol/L (137-145); Total Protein 7.3 g/dL (6.3-8.2)
--- NOTE | 2022-08-23 19:10 | DI.CT.S_ITS ---
PROCEDURE: CT ABDOMEN PELVIS W CON INDICATIONS: abd pain, lower abd, recent travel back from [place] TECHNIQUE: After the administration of IV contrast, axial sections were acquired from the lung bases to the pubic symphysis. Coronal and sagittal reformats were performed. For radiation dose reduction, the following was used: automated exposure control, adjustment of mA and/or kV according to patient size. COMPARISON: None. FINDINGS: Image quality: Excellent. Lung bases: There is atelectasis in the right lung base. Heart: Heart is normal in size. There is a small hiatal hernia. ABDOMEN: Liver: No mass lesion. Gallbladder: Within normal limits without calcified gallstones. Biliary ducts: No biliary ductal dilatation. Pancreas: Unremarkable. Spleen: Normal in size. Adrenal Glands: No adrenal nodules. Kidneys and Ureters: No hydronephrosis. Stomach and Bowel: Stomach, small bowel loops, and colon are normal in caliber and wall thickness. The appendix is normal in appearance. There is colonic diverticulosis with associated mild diverticular and segmental colonic wall thickening in the proximal sigmoid colon with mild pericolonic fat stranding. Findings are consistent with mild diverticulitis. No diverticular abscess or macroscopic free air. Peritoneum: No abnormal intraperitoneal fluid. No free air. Ventral Wall: No hernia. Abdominal Nodes: No retroperitoneal or mesenteric adenopathy by size criteria. Vessels: Aorta and inferior vena cava are normal in size. PELVIS: Pelvic Organs: Prostate is mildly enlarged. Bladder: Unremarkable. Pelvic Nodes: No enlarged lymph nodes. Miscellaneous: No inguinal hernias are seen. Bones: Visualized osseous structures demonstrate no suspicious focal lesions. IMPRESSION: 1. Acute diverticulitis in the proximal sigmoid colon without evidence of diverticular abscess or macroscopic free air. 2. No evidence of appendicitis. Dictated by: Phani Bello M.D. on 08/23/2022 at 21:07 Approved by: Phani Bello M.D. on 08/23/2022 at 21:12
[2022-08-23] MEDS: SODIUM CHLORIDE 0.9% 1,000 ML 1000 ML IV (19:42)
--- NOTE | 2022-08-23 20:11 | ED_ITS ---
HPI - Abdominal Pain General Chief Complaint: Abdominal Pain Stated Complaint: Lower abd pain Time Seen by Provider: 08/23/22 19:09 Source: patient Mode of arrival: Ambulatory Limitations: no limitations History of Present Illness HPI narrative: This is a 67-year-old male with recent NSTEMI who had stent placement of the distal right coronary artery at the proximal branch and the posterolateral branch of the anterior interventricular artery and obtuse marginal branch while he was in [place] visiting, for a total of 5 cardiac stents on April 16, 2022. Patient states he was having chest pain that time he has since been asymptomatic. Patient states today about 5 hours ago he started developing left lower quadrant pain sometimes goes across the abdomen but seems to be localized just to the left lower quadrant at this time. States it has been persistent. He is occasionally had symptoms in the past but not as persistently. He denies any fevers or chills. Denies any nausea or vomiting. He states he had normal bowel movement either yesterday or today. He states it was soft and formed. He denies black or bloody stools. He denies dysuria, urgency or frequency but states he does have an enlarged prostate and is supposed to follow up with the urologist. Patient denies any new issues with urinating today. Patient states he has had a colonoscopy he states that there was diverticulosis on his exam several or many years ago. Medications include pantoprazole 40 mg q.a.m., brilique 90 mg q.a.m. and q.p.m., triatec 5mg qam, congrescor 1.25mg qam, cardioaspirin 100mg after lunch and norvasc 5mg q afternoon and torvast 80mg q evening. Related Data Home Medications Medication Instructions Recorded Confirmed pravastatin 20 mg tablet 20 mg PO DAILY 08/26/18 10/04/21 Previous Rx's Medication Instructions Recorded amlodipine 10 mg tablet 10 mg PO DAILY #30 tabs 11/03/21 amoxicillin 875 mg-potassium 1 tab PO Q12H #20 tabs 08/23/22 clavulanate 125 mg tablet Allergies Allergy/AdvReac Type Severity Reaction Status Date / Time No Known Drug Allergies Allergy Verified 11/03/21 19:42 Review of Systems Review of Systems ROS Unobtainable: All systems reviewed & are unremarkable except as noted in HPI and below Patient History Medical History (Updated 08/23/22 @ 21:27 by Morena Huizar DO) GERD (gastroesophageal reflux disease) HTN (hypertension) Hyperlipidemia Surgical History S/P ORIF (open reduction internal fixation) fracture Social History Smoking Status: Former smoker Smoking Status: Former smoker alcohol intake frequency: 3 or more drinks per day Substance Use Type: does not use Exam Narrative Exam Narrative: GENERAL: Alert and oriented x three, male in mild distress. HEENT: Head normocephalic, atraumatic, EOMI, pupils reactive, face symmetric, moist mucous membranes NECK: Supple, full range of motion CARDIOVASCULAR: Regular rate and rhythm without murmurs, rubs or gallops. RESPIRATORY: Breath sounds equal bilaterally, no wheezes rales or rhonchi. ABDOMEN: Soft, very slight left lower quadrant tenderness. Normoactive bowel sounds all 4 quadrants. No guarding or rebound, rigidity, no mass, no hernias or lumps appreciated on exam. : No CVA tenderness EXTREMITIES: Normal range of motion, no clubbing or edema. Neurovascularly intact NEUROLOGICAL: Cranial nerves II through XII grossly intact. Moving all extremities SKIN: Warm, dry, no petechiae, no rashes or lesions. Patient does not have any vesicular lesions, erythema or other skin changes. Initial Vital Signs Initial Vital Signs: Vital Signs Temperature 98 F 08/23/22 18:11 Pulse Rate 78 08/23/22 18:11 Respiratory Rate 18 08/23/22 18:11 Blood Pressure 132/89 08/23/22 18:11 Pulse Oximetry 98 08/23/22 18:11 Oxygen Delivery Method 08/23/22 18:11 Course Orders Ordered: ED Orders 08/23/22 18:21 EKG-12 Lead Stat 08/23/22 18:33 Complete Blood Count AUTO DIFF Stat Comprehensive Metabolic Panel Stat Lipase Stat Troponin & CK Cardiac Panel Stat 08/23/22 19:10 CT abdomen pelvis w con Stat Discontinued Medications Amoxicillin/Clavulanate Potassium (Amoxicillin/Clav 875/125 Mg) 1 tab PO NOW ONE Stop: 08/23/22 21:32 Last Admin: 08/23/22 21:39 Dose: 1 tab Documented By: HEBER Sodium Chloride (Normal Saline 0.9%) 1,000 mls @ 1,000 mls/hr IV BOLUS ONE Stop: 08/23/22 20:09 Last Infusion: 08/23/22 21:11 Dose: 0 mls/hr Documented By: Admin: 08/23/22 19:42 Dose: 1,000 mls/hr Documented By: PAGE Ibuprofen (Ibuprofen 400 Mg Tablet) 800 mg PO NOW ONE Stop: 08/23/22 20:18 Last Admin: 08/23/22 20:22 Dose: 800 mg Documented By: HEBER Ondansetron HCl (Ondansetron 4 Mg Odt) 4 mg PO NOW PRN PRN Reason: Nausea And Vomiting Ondansetron HCl (Ondansetron 4 Mg/2 Ml Inj) 4 mg IV NOW PRN PRN Reason: Nausea And Vomiting Vital Signs Vital signs: Vital Signs - 8 hr 08/23/22 18:11 08/23/22 19:56 08/23/22 20:00 Temperature 98 F Pulse Rate 78 56 L Respiratory Rate 18 Blood Pressure 132/89 119/70 Pulse Oximetry 98 94 Oxygen Delivery Method Room Air Room Air 08/23/22 20:00 08/23/22 20:32 08/23/22 20:38 Temperature Pulse Rate 59 L 62 62 Respiratory Rate Blood Pressure Pulse Oximetry 95 97 98 Oxygen Delivery Method Room Air Room Air Room Air 08/23/22 20:38 08/23/22 21:00 08/23/22 21:00 Temperature Pulse Rate 62 Respiratory Rate Blood Pressure 124/82 127/88 Pulse Oximetry 96 Oxygen Delivery Method 08/23/22 21:30 08/23/22 21:30 Temperature Pulse Rate 62 Respiratory Rate Blood Pressure 128/88 Pulse Oximetry 97 Oxygen Delivery Method Room Air MDM - Abdominal Pain Lab Data Result diagrams: 08/23/22 18:33 08/23/22 18:33 Labs: Lab Results 08/23/22 08/23/22 08/23/22 Range/Units 18:33 18:33 18:33 WBC 8.8 (4.5-11.0) X10^3/uL RBC 4.96 (4.5-5.9) X10^6/uL Hgb 15.3 (13.5-17.5) g/dL Hct 45.2 (41-53) % MCV 91.1 (80-100) fL MCH 30.9 (26-34) PG MCHC 34.0 (30-36) % RDW 13.6 (11.6-14.8) % Plt Count 232 (150-400) X10^3/uL Neut % (Auto) 67.1 (50-75) % Lymph % (Auto) 18.9 L (25-40) % Stark % (Auto) 11.6 (3-14) % Eos % (Auto) 1.9 L (2-4) % Baso % (Auto) 0.5 (0-2) % Neut # (Auto) 5900 (9475-8900) /uL Lymph # (Auto) 1700 (9390-3077) /uL Stark # (Auto) 1000 H (0-900) /uL Eos # (Auto) 200 (0-450) /uL Baso # (Auto) 0 (0-100) /uL Sodium 137 (137-145) mmol/L Potassium 4.0 (3.4-5.1) mmol/L Chloride 104 (98-107) mmol/L Carbon Dioxide 20 L (22-32) mmol/L BUN 24 H (9-20) mg/dL Creatinine 0.81 (0.66-1.25) mg/dL Estimated GFR > 60 (>60) mL/min BUN/Creatinine Ratio 29.6 H (6-22) Glucose 104 (80-110) mg/dL Calcium 8.7 (8.4-10.2) mg/dL Total Bilirubin 0.7 (0.2-1.3) mg/dL AST 33 (17-59) IU/L ALT 26 (<50) IU/L Alkaline Phosphatase 60 (38-126) U/L Total Creatine Kinase 84 (55-170) U/L CK-MB (CK-2) TNP CK-MB (CK-2) Rel Index TNP Troponin I < 0.012 (0.01-0.034) ng/mL Total Protein 7.3 (6.3-8.2) g/dL Albumin 4.3 (3.5-5.0) g/dL Globulin 3.0 (1.7-4.1) g/dL Albumin/Globulin Ratio 1.4 (1.0-2.8) Lipase 105 (23-300) U/L Point of care testing: Urine Dip Bedside Urine Glucose Negative Bedside Urine Bilirubin - Negative Bedside Urine Ketone - Negative Urine Specific [place] 1.010 Bedside Urine Occult Blood - Negative Bedside Urine pH 6.0 Bedside Urine Protein - Negative Bedside Urine Urobilinogen - Negative Bedside Urine Nitrite - Negative Bedside Urine Leukocytes - Negative Esterase Imaging Data CT scan - abdomen/pelvis: Radiologist's Impression: Acute diverticulitis in the proximal sigmoid colon without evidence of diverticular abscess or macroscopic free air. No evidence of appendicitis, there is a small hiatal hernia, atelectasis in right lung base. Prostate is mildly enlarged. ECG Data Attestation: I personally reviewed and interpreted this ECG as follows: Prior ECG tracings: available for review Interpretation: Sinus rhythm rate of 70 AK 164 QRS of 102 and QTC 419. No acute ST elevation depression noted. Patient has prior from 12/26/[address] changes. MDM Narrative Medical decision making narrative: This is a 67-year-old male who comes to the emergency department with complaint of left lower quadrant pain after being in [place]. Patient states he has had diverticulosis seen on colonoscopy in the past. He is very mildly tender no obvious hernia is appreciated on exam no skin changes seems to be more localized to the left lower quadrant. Patient did have eventful stay in [place] and required 5 cardiac stents during his stay there states he has been asymptomatic since with no chest pain or shortness of breath or other cardiac changes. Patient's labs show normal CBC lymphocytes are low, CO2 is 20 but normal electrolytes, BUN 24 with normal renal function, LFTs and troponin was included this was negative. CT abdomen pelvis was obtained to evaluate for divert iculitis or other intra-abdominal process and shows diverticulitis without any abscess or perforation. Discussed with patient plan for Augmentin twice daily, patient and I discussed he can continue his home medications for his coronary artery disease. All questions answered. We discussed follow up with colonoscopy in the next several months to make sure that there are no other reasons for his infection. He also asked for referral to Urology for his enlarged prostate. Discharge Plan Departure Patient Disposition: Home Clinical Impression: Diverticulitis Instructions: Diverticulitis Activity Restrictions/Additional Instructions: You appear to have diverticulitis on your CT scan today consistent with your symptoms. I do recommend follow-up with your physician to have a colonoscopy in the next several months. Take antibiotics until completely gone. Prescription sent to [facility] in [place]. You can take Tylenol up to a 1000 mg every 6 hours as needed for pain. Take a stool softener such as Colace 1-2 times daily if constipated. Continue your home medications as prescribed. Please return for fevers, worsening abdominal, back or flank pain, vomiting, black or bloody stools or other new or concerning changes. Prescriptions: New amoxicillin-pot clavulanate 875-125 mg tablet 1 tab PO Q12H Qty: 20 0RF No Action pravastatin 20 mg tablet 20 mg PO DAILY amlodipine 10 mg tablet 10 mg PO DAILY Qty: 30 0RF Referrals: Marcela Sotelo MD [Physician] - Miscellaneous,MD Ace [Primary Care Provider] - Paulino Joseph MD [Physician] - Stand Alone Forms: Patient Portal/API
[2022-08-23 20:17] LABS: Creatine Kinase 84 U/L (55-170)
[2022-08-23] MEDS: IBUPROFEN 400 MG TABLET 800 MG PO (20:22)
[2022-08-23 20:30] LABS: Troponin I < 0.012 ng/mL (0.01-0.034)
[2022-08-23] MEDS: AMOXICILLIN/CLAV 875/125 MG 1 TAB PO (21:39)
== END 2022-08-23 21:47 | disposition home or self-care (01) ==
PROVIDERS: Emergency Provider Emergency Medicine
DX: K57.92 Diverticulitis of intestine, part unspecified, without perforation or abscess without bleeding (principal)
CPT/HCPCS: 36415; 74177; 80053; 81003; 82550; 83690; 84484; 85025; 93005; 93010; 99284; Q9967